=== PATIENT | male | born 1990 | race Caucasian/White ===

== ENCOUNTER 2023-02-04 03:19 | Emergency (ER) | payer SELFPAY ==
[2023-02-04] MEDS ORDERED: cloNIDine 0.1 MG Tab PO ONE (03:39)
== END 2023-02-04 03:51 ==
LOC: MW.ED 03:19
DX: F11.23 Opioid dependence with withdrawal (principal); Z86.16 Personal history of COVID-19
CPT/HCPCS: 99284; A9270

== ENCOUNTER 2023-02-04 17:12 | Inpatient (IN) | payer OTHER ==
[2023-02-04] MEDS ORDERED: Sodium Chloride 0.9% 1,000 ML IV ONE ×2 (17:16→18:15)
[2023-02-04] MEDS ORDERED: LORazepam 2 MG/ML SDV IVPUSH ONE ×3 (17:17→21:33)
[2023-02-04 18:39] LABS: BLOOD UREA NITROGEN,BUN 14 mg/dL (7.0-18.0); CARBON DIOXIDE,CO2 26.1 mmol/L (21.0-32.0); CHLORIDE,CL 105 mmol/L (98-107); GLUCOSE RANDOM 119 mg/dL (74-106); POTASSIUM,K 3.8 mmol/L (3.5-5.1); SODIUM,NA 139 mmol/L (136-148)
[2023-02-04 18:52] LABS: ESTIMATED GFR 115 mL/min (>60)
[2023-02-04] MEDS ORDERED: chlordiazePOXIDE 25 MG Cap PO ONE (19:06)
[2023-02-04] MEDS ORDERED: cloNIDine 0.1 MG Tab PO ONE (19:06)
[2023-02-04] MEDS ORDERED: Methadone 10 MG Tab PO ONE (19:20)
[2023-02-04] MEDS ORDERED: Sodium Chloride 0.9% 20 ML SDV IV PRN (19:48)
[2023-02-04] MEDS ORDERED: Thiamine 200 MG/2 ML MDV IVPUSH ONE (19:48)
[2023-02-04] MEDS ORDERED: Sodium Chloride 0.9% 2.5 ML Syringe FLUSH PRN (19:48)
[2023-02-04] MEDS ORDERED: Sodium Chloride 0.9% 10 ML Syringe FLUSH PRN (19:48)
[2023-02-04] MEDS ORDERED: Magnesium Sulfate (4.06 MEQ/ML) 1 GM/2 ML SDV IV ONE (19:48)
[2023-02-04] MEDS ORDERED: Multivitamin Tab PO ONE (19:48)
[2023-02-04] MEDS ORDERED: PHENobarbitaL sodium 260 MG in Sodium Chloride 0.9% 100 ML IV ONE ×2 (19:50→21:00)
[2023-02-04] MEDS: Sodium Chloride 0.9% 1,000 ML IV SCH (20:11)
[2023-02-04] MEDS ORDERED: Magnesium Sulfate/Water 2 GM in Premix Bag 1 BAG IV ONE (20:45)
[2023-02-04] MEDS ORDERED: Metoprolol Tartrate 25 MG Tab PO PRN (21:26)
[2023-02-04] MEDS ORDERED: Acetaminophen 650 MG Supp RECTAL PRN (21:26)
[2023-02-04] MEDS ORDERED: Ondansetron 4 MG Tab.DIS PO PRN (21:26)
[2023-02-04] MEDS ORDERED: Ondansetron 4 MG/2 ML SDV IVPUSH PRN (21:26)
[2023-02-04] MEDS ORDERED: 50% Dextrose in Water 50 ML Syringe IVPUSH PRN (21:26)
[2023-02-04] MEDS ORDERED: Haloperidol Lactate 5 MG/ML SDV IM ONE (22:33)
[2023-02-04] MEDS: Enoxaparin 40 MG/0.4 ML Syringe SUBCUT SCH (23:21)
[2023-02-04] MEDS: Pantoprazole 40 MG in Sodium Chloride 0.9% 10 ML IVPUSH SCH (23:21)
[2023-02-04] MEDS: LORazepam 2 MG/ML SDV IV SCH (23:50)
[2023-02-05] MEDS: Sodium Chloride 0.9% 1,000 ML IV SCH ×3 (00:42→16:53)
[2023-02-05] MEDS ORDERED: Water For Injection, Sterile 20 ML SDV INJECT ONE (00:59)
[2023-02-05] MEDS ORDERED: OLANZapine 10 MG in Water For Injection, Sterile 2.1 ML IM PRN (01:03)
[2023-02-05] MEDS ORDERED: Ziprasidone Mesylate 20 MG Vial IM PRN (01:04)
[2023-02-05] MEDS: LORazepam 2 MG/ML SDV IV SCH ×2 (01:10→20:16)
[2023-02-05] MEDS ORDERED: diphenhydrAMINE 50 MG/ML SDV IVPUSH ONE (01:11)
[2023-02-05] MEDS ORDERED: Rocuronium 100 MG/10 ML MDV ONE (01:15)
[2023-02-05] MEDS ORDERED: Etomidate 2 MG/ML 20 ML SDV IVPUSH ONE (01:15)
[2023-02-05] MEDS ORDERED: Ziprasidone Mesylate 20 MG Vial ONE (01:26)
[2023-02-05] MEDS ORDERED: propofoL 100 ML ONE (02:18)
[2023-02-05] MEDS: propofoL 100 ML IV SCH ×7 (04:35→21:58)
[2023-02-05] MEDS: Folic Acid 1 MG Tab PO SCH (08:52)
[2023-02-05] MEDS: Thiamine 200 MG/2 ML MDV IVPUSH SCH (08:52)
[2023-02-05] MEDS: Pantoprazole 40 MG in Sodium Chloride 0.9% 10 ML IVPUSH SCH (08:53)
[2023-02-05 09:31] LABS: CARBON DIOXIDE,CO2 21.9 mmol/L (21.0-32.0); POTASSIUM,K 3.6 mmol/L (3.5-5.1)
[2023-02-05] MEDS ORDERED: fentaNYL 100 MCG/2 ML SDV IVPUSH PRN (11:04)
[2023-02-05] MEDS: fentaNYL 50 MCG/ML SDV IVPUSH PRN ×4 (13:54→23:06)
[2023-02-05] MEDS ORDERED: Sodium Chloride 0.9% 500 ML IV SCH (16:45)
[2023-02-05] MEDS: Dextrose 5%-0.45% NaCl 1,000 ML IV SCH (16:49)
[2023-02-05 17:54] LABS: POTASSIUM,K 3.2 mmol/L (3.5-5.1)
[2023-02-05] MEDS: Potassium Chloride 100 ML IV SCH ×2 (18:56→21:03)
[2023-02-05] MEDS: Enoxaparin 40 MG/0.4 ML Syringe SUBCUT SCH (21:05)
[2023-02-05] MEDS: Midazolam 1 MG/ML 2 ML SDV IVPUSH PRN (22:00)
[2023-02-05] MEDS ORDERED: Furosemide 20 MG/2 ML VIAL IVPUSH ONE (22:15)
[2023-02-06 00:07] LABS: POTASSIUM,K 3.2 mmol/L (3.5-5.1)
[2023-02-06] MEDS: propofoL 100 ML IV SCH ×3 (00:14→07:39)
[2023-02-06] MEDS: LORazepam 2 MG/ML SDV IV SCH ×5 (00:18→23:26)
[2023-02-06] MEDS ORDERED: Magnesium Sulfate/Water 2 GM in Premix Bag 1 BAG IV ONE (00:36)
[2023-02-06] MEDS: Potassium Chloride 100 ML IV SCH ×4 (01:00→10:20)
[2023-02-06] MEDS: Dextrose 5%-0.45% NaCl 1,000 ML IV SCH ×3 (02:50→23:10)
[2023-02-06] MEDS: fentaNYL 50 MCG/ML SDV IVPUSH PRN ×2 (03:00→08:52)
[2023-02-06] MEDS: Midazolam 1 MG/ML 2 ML SDV IVPUSH PRN ×2 (03:01→07:46)
[2023-02-06 06:46] LABS: CARBON DIOXIDE,CO2 26.2 mmol/L (21.0-32.0); POTASSIUM,K 3.1 mmol/L (3.5-5.1)
[2023-02-06] MEDS ORDERED: Potassium Chloride 10% 20 MEQ/15 ML Soln 15 ML UD Cup NGTUBE ONE (07:22)
[2023-02-06] MEDS ORDERED: Potassium Chloride 100 ML IV SCH (07:30)
[2023-02-06] MEDS: Pantoprazole 40 MG in Sodium Chloride 0.9% 10 ML IVPUSH SCH (07:46)
[2023-02-06] MEDS: Thiamine 200 MG/2 ML MDV IVPUSH SCH (08:04)
[2023-02-06] MEDS: Folic Acid 1 MG Tab PO SCH (08:06)
[2023-02-06] MEDS ORDERED: Haloperidol Lactate 5 MG/ML SDV IM ONE (20:24)
[2023-02-06] MEDS: Enoxaparin 40 MG/0.4 ML Syringe SUBCUT SCH (20:43)
[2023-02-07] MEDS: LORazepam 2 MG/ML SDV IV SCH ×2 (01:18→19:17)
[2023-02-07 06:51] LABS: CARBON DIOXIDE,CO2 25.6 mmol/L (21.0-32.0); POTASSIUM,K 3.4 mmol/L (3.5-5.1)
[2023-02-07] MEDS: Pantoprazole 40 MG in Sodium Chloride 0.9% 10 ML IVPUSH SCH (07:58)
[2023-02-07] MEDS: Thiamine 200 MG/2 ML MDV IVPUSH SCH (08:02)
[2023-02-07] MEDS: Dextrose 5%-0.45% NaCl 1,000 ML IV SCH ×2 (08:04→18:26)
[2023-02-07] MEDS: Folic Acid 1 MG Tab PO SCH (09:55)
[2023-02-07] MEDS: cloNIDine 0.1 MG Tab PO PRN (17:35)
[2023-02-07] MEDS: Acetaminophen 325 MG Tab PO PRN (21:20)
[2023-02-07] MEDS: Enoxaparin 40 MG/0.4 ML Syringe SUBCUT SCH (21:24)
[2023-02-08] MEDS: LORazepam 2 MG/ML SDV IV SCH (01:35)
[2023-02-08] MEDS: Acetaminophen 325 MG Tab PO PRN ×2 (01:58→09:24)
[2023-02-08] MEDS: cloNIDine 0.1 MG Tab PO PRN (02:01)
[2023-02-08] MEDS: Dextrose 5%-0.45% NaCl 1,000 ML IV SCH (04:17)
[2023-02-08 06:12] LABS: CARBON DIOXIDE,CO2 24.9 mmol/L (21.0-32.0)
[2023-02-08] MEDS ORDERED: Potassium Chloride 20 MEQ Tab.ER PO ONE (06:39)
[2023-02-08] MEDS: Pantoprazole 40 MG in Sodium Chloride 0.9% 10 ML IVPUSH SCH (06:49)
[2023-02-08] MEDS: Thiamine 200 MG/2 ML MDV IVPUSH SCH (08:44)
== END 2023-02-08 12:45 | DRG 896 ==
LOC: MW.ED 17:12 → MW.MS 21:22 → MW.ICU 02-05 01:16 → OBSVTOIN 02-05 11:34
PROVIDERS: ADMIT Hospitalist; ATTEND Hospitalist
PROC: 5A1945Z Respiratory Ventilation, 24-96 Consecutive Hours (ICD-10-PCS; principal; 2023-02-05)
PROC: 0DH67UZ Insertion of Feeding Device into Stomach, Via Natural or Artificial Opening (ICD-10-PCS; 2023-02-05)
PROC: 0BH17EZ Insertion of Endotracheal Airway into Trachea, Via Natural or Artificial Opening (ICD-10-PCS; 2023-02-05)
DX: F10.939 Alcohol use, unspecified with withdrawal, unspecified (principal); J96.91 Respiratory failure, unspecified with hypoxia; F19.20 Other psychoactive substance dependence, uncomplicated; F11.23 Opioid dependence with withdrawal; G40.409 Other generalized epilepsy and epileptic syndromes, not intractable, without status epilepticus; Y90.0 Blood alcohol level of less than 20 mg/100 ml; F17.210 Nicotine dependence, cigarettes, uncomplicated; E83.42 Hypomagnesemia; F41.9 Anxiety disorder, unspecified; R41.0 Disorientation, unspecified; F29 Unspecified psychosis not due to a substance or known physiological condition; E16.2 Hypoglycemia, unspecified; E87.6 Hypokalemia
CPT/HCPCS: 31500; 36415; 51702; 70450; 70450-26; 71045; 71045-26; 72125; 72125-26; 72170; 72170-26; 74018; 74018-26; 80048; 80053; 80184; 80305-QW; 80307; 81003; 82550; 82803; 82947; 83735; 84100; 84132; 85025; 93005; 93010; 94002; 94003; 96361; 96365; 96366; 96367; 96368; 96372; 96375; 96376; 99223; 99232; 99239; 99285; 99285-25; A9270-GY; C9113; G0378; J1200; J1630; J1650; J1940; J2060; J2250; J2560; J2704; J3010; J3411; J3475; J3480; J3486; J3490; J7030; J7042

== ENCOUNTER 2023-02-08 17:54 | Emergency (ER) | payer OTHER ==
[2023-02-08] MEDS ORDERED: Diphtheria,Pertussis(Acell),Tetanus Vaccine 0.5 ML Syringe IM ONE (18:58)
[2023-02-08] MEDS ORDERED: Ibuprofen 600 MG Tab PO ONE (18:59)
== END 2023-02-08 19:24 ==
LOC: MW.ED 17:54
DX: S06.0X9A Concussion with loss of consciousness of unspecified duration, initial encounter (principal); S02.2XXA Fracture of nasal bones, initial encounter for closed fracture; S01.81XA Laceration without foreign body of other part of head, initial encounter; E11.9 Type 2 diabetes mellitus without complications; Z86.16 Personal history of COVID-19; Z72.0 Tobacco use; Z23 Encounter for immunization; W22.09XA Striking against other stationary object, initial encounter
CPT/HCPCS: 12011; 70450; 70486; 72125; 90471; 90715; 99283; A9270

== ENCOUNTER 2023-02-08 22:06 | Emergency (ER) | payer OTHER ==
[2023-02-08] MEDS ORDERED: Thiamine 200 MG/2 ML MDV IVPUSH ONE (22:10)
[2023-02-08] MEDS ORDERED: Sodium Chloride 0.9% 10 ML Syringe FLUSH PRN (22:10)
[2023-02-08] MEDS ORDERED: Sodium Chloride 0.9% 2.5 ML Syringe FLUSH PRN (22:10)
[2023-02-08] MEDS ORDERED: Sodium Chloride 0.9% 20 ML SDV IV PRN (22:10)
[2023-02-08] MEDS ORDERED: LORazepam 2 MG/ML SDV IVPUSH ONE (22:10)
[2023-02-08] MEDS ORDERED: Sodium Chloride 0.9% 1,000 ML IV SCH (22:15)
[2023-02-08] MEDS ORDERED: PHENobarbital Sodium 130 MG/ML SDV ONE (22:31)
[2023-02-08 22:59] LABS: BLOOD UREA NITROGEN,BUN 8 mg/dL (7.0-18.0); CARBON DIOXIDE,CO2 22.9 mmol/L (21.0-32.0); CHLORIDE,CL 106 mmol/L (98-107); GLUCOSE RANDOM 92 mg/dL (74-106); SODIUM,NA 141 mmol/L (136-148)
[2023-02-08 23:00] LABS: ESTIMATED GFR 124 mL/min (>60)
[2023-02-08] MEDS ORDERED: Potassium Chloride 20 MEQ in Premix Bag 1 BAG IV ONE (23:10)
[2023-02-08] MEDS ORDERED: Sodium Chloride 0.9% 250 ML IV ONE (23:15)
[2023-02-09] MEDS ORDERED: Propofol 200 MG/20 ML SDV IVPUSH ONE (01:06)
[2023-02-09] MEDS ORDERED: propofoL 100 ML IV PRN (01:06)
[2023-02-09] MEDS ORDERED: Rocuronium 100 MG/10 ML MDV IVPUSH ONE (01:06)
[2023-02-09] MEDS ORDERED: Ketamine 500 mg/10 ML MDV IV ONE (01:06)
[2023-02-09] MEDS ORDERED: HYDROmorphone 1 MG/ML Syringe IVPUSH ONE (01:09)
[2023-02-09] MEDS ORDERED: propofoL 100 ML ONE (01:53)
[2023-02-09] MEDS ORDERED: Sodium Chloride 0.9% 250 ML IV ONE (02:00)
== END 2023-02-09 02:50 ==
LOC: MW.ED 22:06
DX: G40.901 Epilepsy, unspecified, not intractable, with status epilepticus (principal)
CPT/HCPCS: 31500; 36415; 70450; 71045; 74176; 80053; 80184; 80185; 80307; 82803; 85025; 93005; 96361; 96365; 96366; 96367; 96375; 99285; J1170; J1953; J2060; J2560; J2704; J3411; J3480; J3490; J7030; J7050; J7060; 93010